=== PATIENT | male | born 1990 | race Asian ===

== ENCOUNTER 2025-01-12 02:59 | Emergency (ER) | payer BC, SELFPAY ==
[2025-01-12] VITALS (8 sets, daily range): BP systolic 97–114; BP diastolic 45–60
[2025-01-12] MEDS: ZOFRAN 4 MG IV (04:02)
[2025-01-12 04:10] LABS: White Blood Cell Count 14.4 10^3/uL (4.8-10.8)
[2025-01-12 04:15] LABS: % Basophils 0.2 % (0-2); % Eosinophils 0.1 % (0-6); % Immature Granulocytes 0.4 % (0-0.5); % Lymphocytes 4.1 % (20.5-51.1); % Monocytes 2.9 % (1.7-9.3); % Neutrophils 92.3 % (42.2-75.2); Absolute Immature Granulocytes 0.1 10^3/uL (0-0.05); Absolute Lymphocytes 0.6 10^3/uL (1.2-3.4); Absolute Monocytes 0.4 10^3/uL (0.1-0.6); Absolute Neutrophils 13.3 10^3/uL (1.4-6.5); Hematocrit 37.8 % (39.0-52.0); Hemoglobin 12.3 g/dL (13.0-18.0); Mean Corp Hgb Conc. 32.5 g/dL (33.0-37.0); Mean Corpuscular Volume 61.5 fL (80.0-94.0); Nucleated Red Blood Cells % 0.1 % (-); Platelet Count 212 10^3/uL (130-400); Red Blood Cell Count 6.15 10^6/uL (4.70-6.10); Red Cell Dist. Width 17.8 % (11.5-14.5)
[2025-01-12 04:29] LABS: ALT (SGPT) 25 U/L (0-50); AST (SGOT) 25 U/L (17-59); Albumin 4.8 g/dl (3.5-5.0); Alkaline Phosphatase 65 U/L (38-126); Blood Urea Nitrogen 21 mg/dl (9-20); Calcium 9.7 mg/dl (8.4-10.2); Carbon Dioxide 26 mmol/L (22-30); Chloride 101 mmol/L (98-107); Glucose 110 mg/dl (70-99); Lipase 160 U/L (23-300); Potassium 3.6 mmol/L (3.5-5.1); Sodium 140 mmol/L (135-145); Total Bilirubin 1.4 mg/dl (0.2-1.3); Total Protein 7.7 g/dl (6.3-8.2); eGFR > 60.00
[2025-01-12 04:42] LABS: Troponin I < 0.012 ng/ml
[2025-01-12] MEDS: MAALOX 40 PO (05:51)
[2025-01-12] MEDS: ZOFRAN ODT (ORALLY DISINTEGRATING) 4 MG PO (06:17)
--- NOTE | 2025-01-12 06:55 | ED.GENMED ---
History of Present Illness
General
Chief Complaint: Fainting/Passed Out
Time Seen by Provider: 01/12/25 03:39
Review of Systems
Review of Systems
Allergies reviewed?: Yes
All Other Systems: ROS reviewed and negative except as documented in HPI and ROS
Constitutional: Reports no symptoms
EENT: Reports no symptoms
Respiratory: Reports no symptoms
Cardiac: Reports no symptoms
ABD/GI: Reports abdominal pain, nausea and vomiting
: Reports no symptoms
Musculoskeletal: Reports no symptoms
Skin: Reports no symptoms
Neurological: Reports no symptoms
Endocrine: Reports no symptoms
Hematologic/Lymphatic: Reports no symptoms
Psychiatric: Reports anxiety
Phy Exam
General Physical Exam
General Presentation: well appearing and no apparent distress
General Skin: warm and dry
General Habitus: normal
General Mental: alert
General Hydration: appears well hydrated
ENT Exam
ENT Exam: EOMI, pharynx normal, neck supple and normocephalic
Eye Exam
Eye Exam: PERRL, cornea clear and conjunctiva normal
Cardiovascular Exam
Cardiovascular Exam: regular rate/rhythm, no edema, no murmur and normal peripheral pulses
Pulmonary Exam
Pulmonary Exam: lungs clear, no respiratory distress, no rales, no crackles, no rhonchi, no stridor, no wheezing and no cough
Gastrointestinal Exam
Gastrointestinal Exam: normal bowel sounds, soft and non distended
Palpation: generalized: Minimal tenderness
Neurological Exam
Neurological Exam: alert, oriented x3, no motor deficits and speech normal
Musculoskeletal Exam
Musculoskeletal Exam: full ROM and no edema
Skin Exam
Skin Exam: normal color, warm/dry, no rash and no petechia
Psychiatric Exam
Psychiatric Exam: normal mood/affect
Course
Orders/Labs/Results
Orders:
Orders
01/12/25 03:29
Electrocardiogram (*1) Urgent
Reason for Study: Chest Pain
Cardiac Monitoring- Treatment ONCE
EKG- Treatment ONCE
IV Insert/Care/Rem.- Treatment PRN
O2 Therapy [RESP] Urgent
Titrate/Wean O2 to maintain O2 sat greater than (%): 90
Special Instructions: Maintain sats >/=90%
Pulse Ox/spot Check [RESP] Urgent
Quantity: 1
Special Instructions: ON ROOM AIR
01/12/25 03:31
Complete Blood Count/With Diff Urgent
Comprehensive Metabolic Panel Urgent
Lipase Urgent
Troponin I Urgent
01/12/25 03:41
CT Abd/pelvis W Iv Cont Urgent
Comment:
Reason For Exam: diffuse abd pain, severe pain
01/12/25 03:53
Ondansetron Injectable [Zofran] 4 mg IV NOW STA
Ondansetron Orally Disint [Zofran Odt (Orally Disintegrating)] 4 mg PO NOW STA
01/12/25 05:39
Mag Hydrox/Al Hydrox/Simeth [Maalox] 30 ml Phenobarb/Hyoscy/Atropine/Scop [] 10 ml PO NOW
01/12/25 05:50
Phenobarb/Hyoscy/Atropine/Scop [] 10 ml .ROUTE .STK-MED ONE
01/12/25 05:51
Mag Hydrox/Al Hydrox/Simeth [Maalox] 30 ml .ROUTE .STK-MED ONE
01/12/25 06:17
Acetaminophen [Tylenol] 1,000 mg .ROUTE .STK-MED ONE
Ondansetron Orally Disint [Zofran Odt (Orally Disintegrating)] 4 mg .ROUTE .STK-MED ONE
Abnormal Lab Results
01/12/25
03:31
WBC 14.4 H 10^3/uL
(4.8-10.8)
RBC 6.15 H 10^6/uL
(4.70-6.10)
Hgb 12.3 L g/dL
(13.0-18.0)
Hct 37.8 L %
(39.0-52.0)
MCV 61.5 L fL
(80.0-94.0)
MCH 20.0 L pg
(27.0-31.0)
MCHC 32.5 L g/dL
(33.0-37.0)
RDW 17.8 H %
(11.5-14.5)
Abs Immat Gran (auto) 0.1 H 10^3/uL
(0-0.05)
Absolute Neuts (auto) 13.3 H 10^3/uL
(1.4-6.5)
Absolute Lymphs (auto) 0.6 L 10^3/uL
(1.2-3.4)
Neutrophils % 92.3 H %
(42.2-75.2)
Lymphocytes % 4.1 L %
(20.5-51.1)
BUN 21 H mg/dl
(9-20)
Glucose 110 H mg/dl
(70-99)
Total Bilirubin 1.4 H mg/dl
(0.2-1.3)
01/12/25 03:31
01/12/25 03:31
Vital Signs
Initial and Last Documented VS:
Initial Vital Signs
Temp Pulse Resp BP Pulse Ox
98.6 F 86 22 114/60 100
01/12/25 03:12 01/12/25 03:12 01/12/25 03:12 01/12/25 03:12 01/12/25 03:12
Last Documented Vital Signs
Temp Pulse Resp BP Pulse Ox
98.6 F 81 20 109/58 98
01/12/25 03:12 01/12/25 06:00 01/12/25 05:45 01/12/25 06:00 01/12/25 05:45
Update Note
Update Note:
Discussed lab work with patient.
CT scan showed:CT abdomen and pelvis with IV contrast
IMPRESSION:
Appendix is normal. Acute gastroenteritis without obstruction or perforation.
No cholecystitis or pancreatitis. No obstructing renal stone. Spleen and adrenal glands are normal. Abdominal aorta is of normal caliber.
Likely diagnosis is acute gastroenteritis.
GI cocktail showed some improvement
ED Attending Note
-
Portions of this chart may have been created with voice recognition software.� Occasional wrong word or��sound alike� substitutions may have occurred due to the inherent limitations of voice recognition software.
Discharge Plan
Departure
Referrals:
UNKNOWN - PT DOES,NOT KNOW [Family Provider] -
Interventions
Interventions:
*Risk Screen - Suicide Last Done: 01/12/25 05:07
*General Assessment Last Done: 01/12/25 05:07
*Neglect/Abuse Screening Last Done: 01/12/25 05:07
*ED- Fall Risk Assessment Last Done: 01/12/25 05:07
*ED COVID-19 Vaccine History Last Done: 01/12/25 05:07
ED- Cardiac Assessment Last Done: 01/12/25 04:11
ED- Neurological Assessment Last Done: 01/12/25 04:11
Discharge Date and Time
Print Language: FRENCH
== END 2025-01-12 07:19 | disposition home or self-care (01) ==
LOC: EMR 02:59
PROVIDERS: EMERGENCY PHYSICIAN Student in an Organized Health Care Education/Training Program
DX: K52.9 Noninfective gastroenteritis and colitis, unspecified (principal)
CPT/HCPCS: 99285; 96374; 74177; 80053; 83690; 84484; 85025; 93005; Q9967

== ENCOUNTER → 2025-05-02 17:31 | Outpatient (REF) | payer BC, SELFPAY | LOC: RAD 17:31 | PROVIDERS: ATTENDING PHYSICIAN Urology | DX: N50.812 Left testicular pain (principal) | CPT/HCPCS: 76870; 93976 ==

== ENCOUNTER 2025-06-19 06:19 | Day surgery (SDC) | payer BC, SELFPAY | END 2025-06-19 12:29 | disposition home or self-care (01) | LOC: GI 06:19 | PROVIDERS: ATTENDING PHYSICIAN Internal Medicine Gastroenterology | DX: D12.0 Benign neoplasm of cecum (principal); D12.3 Benign neoplasm of transverse colon; D12.4 Benign neoplasm of descending colon; K64.9 Unspecified hemorrhoids; R19.4 Change in bowel habit; K22.89 Other specified disease of esophagus; R10.13 Epigastric pain | CPT/HCPCS: 45385; 45380; 43239; 88305; 88342 ==